=== PATIENT | male | born 1950 | race Caucasian/White ===

== ENCOUNTER 2019-12-17 07:31 | Day surgery (SDC) | payer OTHER, MEDICARE ==
--- OUTSIDE RECORDS SUMMARY | 2019-12-17 07:33 | XMS REPORT | Clinical Summary ---
:1950 Author Organization [facility] Address [address] [place] [address] Care Team Providers Name Role Phone Romeo Rivera MD Primary Care Provider Allergies Active Allergy Reactions Severity Noted Date Comments Penicillins Swelling 03/19/2016 Medications Medication Sig Dispensed Refills Start Date End Date Status cyanocobalamin 1,000 1,000 mcg daily. 2 02/26/2018 Active mcg/mL injection levothyroxine Take 25 mcg by 2 02/26/2018 Active (SYNTHROID, LEVOXYL) 25 mouth daily. mcg tablet warfarin (COUMADIN) 5 Take one tablet 90 tablet 3 06/08/2018 Active MG tabletIndications: daily or as Atrial fibrillation, directed by chronic office atenolol (TENORMIN) 25 TAKE 1 TABLET BY 90 tablet 3 11/25/2018 Active MG tablet MOUTH EVERY DAY. Active Problems Problem Noted Date PVC (premature ventricular contraction) 03/16/2018 Overview: Added automatically from request for surgery [id number] Last Assessment & Plan: Doing better Asymptomatic Continue BB Family History Medical History Relation Name Comments Heart attack Mother Relation Name Status Comments Mother Social History Tobacco Use Types Packs/Day Years Used Date Former Smoker Smokeless Tobacco: Never Used Alcohol Use Drinks/Week oz/Week Comments Yes 6 Cans of beer 6.0 Sex Assigned at Date Recorded Not on file Job Start Date Occupation Industry Not on file Not on file Not on file Travel History Travel Start Travel End No recent travel history available. 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 Shelf Model / Identifier Expiration Serial / Date Lot Catheter Diag Apt 3f 120cm 2-5-2 Spacing 20 Electrodes - [id number] Cardiovascular N/A: [id number] / Implanted: 05/06/2018 at [facility] (Quantity not on file) Implants N/A / Results Not on fileafter 12/16/2018 Insurance Payer Benefit Plan / Subscriber ID Effective Dates Phone Addre ss Type Group MEDICARE MEDICARE PART A xxxxxxxxxxx 2017-Present [place], [place] Medicare AND B AARP AARP SUPPLEMENT xxxxxxxxx 2017-Present Commercial Advance Directives For more information, please contact: [phone] Type Date 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
[2019-12-17] MEDS ORDERED: propofoL 200 MG/20 ML VIAL IV ONE (07:44)
[2019-12-17] MEDS ORDERED: MIDAZOLAM HCL 2 MG/2 ML INJ ONE (07:44)
[2019-12-17] MEDS ORDERED: FENTANYL CITR 100 MCG/2 ML ONE (07:44)
[2019-12-17] MEDS ORDERED: dexAMETHasone 10 MG/ML VIAL ONE (07:44)
[2019-12-17] MEDS ORDERED: LIDOCAINE 2% MPF 5 ML VIAL ONE (07:44)
[2019-12-17] MEDS ORDERED: ROCURONIUM 50 MG/5 ML VIAL IV ONE (07:45)
[2019-12-17] MEDS ORDERED: CEFAZOLIN/SWI 1gm 1 GM/10 ML SYR ONE (08:26)
[2019-12-17] MEDS ORDERED: Ringers Lactate 1,000 ML IV ONE (08:26)
[2019-12-17] MEDS ORDERED: VANCOMYCIN/NS 1 gm 1 GM/250 ML BAG IV ONE (08:45)
[2019-12-17] MEDS: BUPIVACA 0.25%/EPI 0.0005%/PF 30 ML VIAL ONE ×2 (08:58→09:05)
[2019-12-17] MEDS ORDERED: GLYCOPYRROLATE 0.2 MG/ML SYR ONE ×3 (09:17→09:48)
[2019-12-17] MEDS ORDERED: EPHEDRINE SULF 50 MG/ML VIAL ONE (09:23)
--- NOTE | 2019-12-17 09:42 | P.OP ---
Preoperative diagnosis: Umbilical Ventral Abdominal Hernia Postoperative diagnosis: Umbilical Ventral Abdominal Hernia Primary procedure: Laparoscopic Ventral Umbilical Hernia Repair with Mesh Anesthesia: GETA + Local Estimated blood loss: <10cc Specimen: None Findings: 5x4cm umbilical defect, urachal cyst Implants: 11.4cm round Bard Ventalite ST mesh with echo position Transferred to: Recovery Room Condition: Good
[2019-12-17] MEDS ORDERED: KETOROLAC 30 MG/ML INJ ONE (09:45)
[2019-12-17] MEDS ORDERED: NEOSTIGMINE 1 MG/ML -5 ML ONE (09:48)
[2019-12-17] MEDS ORDERED: ONDANSETRON 4 MG/2 ML VIAL ONE (10:31)
[2019-12-17] MEDS ORDERED: HYDROMORPHONE HCL 1 MG/ML INJ ONE (10:32)
[2019-12-17 10:33] VITALS: O2SAT 98
[2019-12-17] MEDS ORDERED: NORCO 5/325mg (4 TAB for ER Dispense) PO ONE (11:00)
[2019-12-17] MEDS ORDERED: HYDROCODONE/APAP 5/325 MG TAB ONE (11:08)
--- NOTE | 2019-12-17 11:26 | OP ---
Date of Procedure: 12/17/2019 Surgeon: Morgan Rodas MD, Preoperative Diagnosis: Ventral umbilical hernia. Postoperative Diagnosis: Ventral umbilical hernia. Procedures Performed: 1.Laparoscopic ventral umbilical hernia repair with mesh. 2.Laparoscopic adhesiolysis. Anesthesia: General endotracheal plus local with 0.5% Marcaine with epinephrine. Estimated Blood Loss: Less than 10 cc. Specimen: None. Findings: A 5 x 4 cm umbilical defect with urachal cyst. Implants: 11.4 cm round Bard Vent[address]ight ST mesh with Echo Positioning System. Disposition: Transferred to recovery room in good condition. Procedure In Detail: After informed consent was obtained, the patient was brought to the operating r oom, prepped and draped in usual sterile fashion. After adequate anesthesia was achieved, an area in the left mid abdomen was anesthetized with 0.5% Marcaine, sharply incised and a 5 mm optical trocar was introduced in the abdomen without evidence of complication. Insufflation was obtained to 15 mmHg at this time. There was no injury to vital structure upon entry into the abdomen. Additional troca r was chosen in the a left upper quadrant, similarly anesthetized and sharply incised. A 5 mm trocar was introduced in the abdomen without evidence of complication. The previously placed optical troca r was then replaced with a 12 mm under direct visualization without evidence of complication. The deandra barrios was then evaluated and explored on his abdominal wall to find an approximately 5 x 4 cm umbilic al hernia defect with what appeared to be a possible urachal cyst emanating from the inferior aspect. This was skeletonized down using the LigaSure device to achieve a good landing position for the mes h. I then sewed the umbilical defect closed with a V-Loc suture in a running fashion with good appro ximation and apposition of the abdominal wall fascia. I then brought the Bard Ventralight ST mesh, 1 1.4 cm round with Echo Positioning System through the 12 mm trocar and positioned it appropriately on the central portion of the hernia defect appropriately anesthetizing the tract. A small stab incisi on was made and a Dionisio suture passer was used to grasp the deployment system and inflate t he balloon at this point and the mesh was positioned appropriately at the central portion of the defe ct. The SorbaFix absorbable fixation tacks were then used to circumferentially put a crown in place and then the deployment system was removed leaving only the mesh behind the SorbaFix. Tacks were the n used to secure in a double crown type fashion to the anterior abdominal wall using approximately 60 of the SorbaFix tacks with good apposition. There were no hemostatic maneuvers required at the end of the procedure. The area was irrigated and suctioned dry. The patient was positioned in neutral p osition. The 12 mm trocar was then removed. The 12 mm trocar site was then closed using a [facility] suture passer with an 0 Vicryl in interrupted fashion with good approximation of the tissues. The abdomen was completely desufflated under direct visualization without evidence of complication. All trocars were removed. All skin incisions were copiously irrigated and closed with a 4-0 Monocry l in a running fashion with Dermabond placed over top the patient. The tolerated the procedure well without evidence of complication and transferred to PACU in good condition. All counts were correct at the end of the case. KENIA/PRIYA Voice ID: [id number] Report ID: [id number]
[2019-12-17 11:49] VITALS: BP 110/60; TEMP 96.5
== END 2019-12-17 11:30 | disposition home or self-care (01) ==
LOC: OR 07:31
PROVIDERS: ATTEND Surgery
PROC: 0WUF4JZ Supplement Abdominal Wall with Synthetic Substitute, Percutaneous Endoscopic Approach (ICD-10-PCS; principal; 2019-12-17 08:30)
DX: K42.9 Umbilical hernia without obstruction or gangrene (principal); K43.9 Ventral hernia without obstruction or gangrene; Q64.4 Malformation of urachus; E07.9 Disorder of thyroid, unspecified; Z11.59 Encounter for screening for other viral diseases; Z88.0 Allergy status to penicillin; Z80.0 Family history of malignant neoplasm of digestive organs
CPT/HCPCS: 49652; U0002; J2704; J2250; J3010; J1100; J1170; J2710; J3370; J7120; J2405; C1781; J0690